=== PATIENT | female | born 1945 | race African-American/Black ===

== ENCOUNTER 2018-07-30 12:35 | Inpatient (IN) | payer MEDICARE, MEDICAID ==
[~2018-07-30] VITALS: Ht 162.6 cm; Wt 56.3 kg
[2018-07-30] MEDS ORDERED: METF-414 PO (12:52)
[2018-07-30 13:48] LABS: BG BASE EXCESS -4.1 mmol/L (-2.0-2.0); BG CARBOXYHEMOGLOBIN 0.8 % (0.5-1.5); BG DEOXYHEMOGLOBIN 5.4 % (0.0-5.0); BG FRACTION INSPIRED OXYGEN 21; BG HCO3 ACT 20.6 mmol/L (22.0-26.0); BG METHEMOGLOBIN 0.3 % (0.0-1.5); BG OXYGEN SATURATION 94.5 % (92.0-98.5); BG OXYHEMOGLOBIN 93.5 % (94.0-97.0); BG PCO2 36.3 mmHg (35.0-45.0); BG PH 7.372 (7.350-7.450); BG PO2 72.9 mmHg (75.0-100.0); BG SAMPLE SITE RIGHT BRACHIAL; BG VENT MODE ROOM AIR
[2018-07-30 14:45] LABS: BASOPHILS % 0.4 % (0.0-2.0); EOSINOPHILS % 0.9 % (0.0-5.0); HEMATOCRIT. 34.8 % (36.0-48.0); HEMOGLOBIN. 11.6 g/dL (12.0-16.0); LYMPHOCYTES % 30.5 % (20.0-50.0); MEAN CORPUSCULAR HEMOGLOBIN 29.7 pg (28.0-32.0); MEAN CORPUSCULAR VOLUME 88.7 fL (81.0-99.0); MEAN PLATELET VOLUME 8.6 fl (7.4-10.4); MONOCYTES % 7.7 % (2.0-8.0); NEUTROPHILS % 60.5 % (40.0-76.0); PLATELET 255 x1000/uL (130-400); RED BLOOD CELL COUNT 3.93 mill/uL (4.2-5.4); RED CELL DISTRIBUTION WIDTH 13.6 % (11.6-14.6)
[2018-07-30 14:54] LABS: PARTIAL THROMBOPLASTIN TIME 24.5 sec (23.4-31.0); PROTHROMBIN TIME 10.2 sec (9.1-11.1)
[2018-07-30 14:55] LABS: CHLORIDE 108 mEq/L (98-107)
[2018-07-30 15:03] LABS: CREATINE KINASE 54 IU/L (26-192); CREATINE KINASE MB FRACTION < 1.0 ng/mL (0.5-3.6)
[2018-07-30 16:58] LABS: COLOR URINE YELLOW (YELLOW); KETONES URINE NEGATIVE (NEGATIVE); LEUKOCYTE ESTERASE URINE 1+ (NEGATIVE); NITRITE URINE NEGATIVE (NEGATIVE); OCCULT BLOOD URINE NEGATIVE (NEGATIVE); PROTEIN URINE NEGATIVE (NEGATIVE); SPECIFIC GRAVITY URINE 1.011 (1.005-1.030); UROBILINOGEN URINE 0.2 E.U./dL (0.2-1.0)
[2018-07-30 16:59] LABS: CLARITY URINE SLIGHTLY HAZY (CLEAR)
[2018-07-30] MEDS ORDERED: SODIUM CHLORIDE 0.9% 1,000 ML IV ONE (17:35)
[2018-07-30] MEDS ORDERED: ONDANSETRON HCL 4MG/2ML INJ IV PRN (23:30)
[2018-07-30] MEDS: MORPHINE SULFATE 4 MG/ML CPJ (NOT FOR IM USE) IV PRN (23:41)
[2018-07-31] VITALS (7 sets, daily range): BP systolic 100–133; BP diastolic 51–68
[2018-07-31] MEDS ORDERED: DEXTROSE 50% WATER 50ML SYRINGE IV PRN (04:30)
[2018-07-31] MEDS ORDERED: ACETAMINOPHEN 325MG TABLET PO PRN (04:30)
[2018-07-31] MEDS: BLOOD SUGAR DIAGNOSTIC STRIP TEST SCH ×4 (05:49→21:47)
[2018-07-31] MEDS: INSULIN LISPRO 100 UNITS/ML SUBCUT SCH ×4 (08:00→21:52)
[2018-07-31] MEDS ORDERED: METFORMIN HCL 500MG TABLET PO SCH (08:10)
[2018-07-31] MEDS ORDERED: ASPIRIN 325MG TABLET PO SCH (09:00)
[2018-07-31] MEDS ORDERED: INFLUENZA VIRUS VACCINE(AFLURIA) 0.5ML SYR IM ONE (10:00)
[2018-07-31 15:53] LABS: AMMONIA 22 uMol/L (<32)
[2018-07-31] MEDS: INSULIN GLARGINE UD 100 UNITS/ML SYR SUBCUT SCH (21:52)
[2018-08-01 00:44] VITALS: BP 117/61
[2018-08-01 04:00] VITALS: BP 131/53
[2018-08-01] MEDS: MORPHINE SULFATE 4 MG/ML CPJ (NOT FOR IM USE) IV PRN (04:06)
[2018-08-01 06:31] LABS: BASOPHILS % 0.5 % (0.0-2.0); EOSINOPHILS % 1.9 % (0.0-5.0); HEMATOCRIT. 33.7 % (36.0-48.0); HEMOGLOBIN. 11.1 g/dL (12.0-16.0); LYMPHOCYTES % 41.1 % (20.0-50.0); MEAN CORPUSCULAR HEMOGLOBIN 29.1 pg (28.0-32.0); MEAN CORPUSCULAR VOLUME 88.7 fL (81.0-99.0); MEAN PLATELET VOLUME 8.4 fl (7.4-10.4); MONOCYTES % 9.1 % (2.0-8.0); NEUTROPHILS % 47.4 % (40.0-76.0); PLATELET 228 x1000/uL (130-400); RED CELL DISTRIBUTION WIDTH 13.7 % (11.6-14.6)
[2018-08-01] MEDS: BLOOD SUGAR DIAGNOSTIC STRIP TEST SCH ×3 (06:59→17:40)
[2018-08-01 08:00] VITALS: BP_SYST 113; BP_SYST 71; BP_SYST 99; BP_DIAS 31; BP_DIAS 45; BP_DIAS 49
[2018-08-01] MEDS: INSULIN LISPRO 100 UNITS/ML SUBCUT SCH ×3 (08:10→18:10)
[2018-08-01] MEDS: INSULIN GLARGINE UD 100 UNITS/ML SYR SUBCUT SCH (09:47)
[2018-08-01 12:00] VITALS: BP 120/59
[2018-08-01] MEDS ORDERED: FLUDROCORTISONE ACETATE 0.1MG TABLET PO SCH (12:30)
[2018-08-01 13:50] VITALS: BP 120/59
== END 2018-08-01 19:01 | disposition home health service (06) | DRG 47 ==
LOC: ER 12:35 → EDBEDREQ 14:11 → 7WST 15:06 → EDBEDREQSVC 15:13 → EDBEDREQTM 15:13 → EDBEDREQ 15:13 → ENRESERV 23:01 → EDBEDREQ 23:51
PROVIDERS: ADMIT Internal Medicine; ATTEND Internal Medicine
DX: G45.9 Transient cerebral ischemic attack, unspecified (principal); N17.9 Acute kidney failure, unspecified; I95.9 Hypotension, unspecified; E87.8 Other disorders of electrolyte and fluid balance, not elsewhere classified; E11.22 Type 2 diabetes mellitus with diabetic chronic kidney disease; E44.1 Mild protein-calorie malnutrition; N39.0 Urinary tract infection, site not specified; I12.9 Hypertensive chronic kidney disease with stage 1 through stage 4 chronic kidney disease, or unspecified chronic kidney disease; N18.9 Chronic kidney disease, unspecified; B96.89 Other specified bacterial agents as the cause of diseases classified elsewhere; R41.82 Altered mental status, unspecified; Z90.49 Acquired absence of other specified parts of digestive tract; Z79.84 Long term (current) use of oral hypoglycemic drugs; Z98.891 History of uterine scar from previous surgery; Z68.21 Body mass index [BMI] 21.0-21.9, adult
CPT/HCPCS: 36415; 36600; 70551; 71045; 80048; 80061; 82140; 82375; 82550; 82553; 82805; 82962; 83036; 83605; 83735; 83880; 84145; 84443; 84484; 86850; 86900; 87077; 87186; 93005; 93880; 96361; 96374; 96375; 97162; 99291; J1815; J2270; J2405; J7030

== ENCOUNTER 2018-08-03 08:36 | Inpatient (IN) | payer MEDICARE, MEDICAID ==
[~2018-08-03] VITALS: Ht 162.6 cm; Wt 55.8 kg
[2018-08-03 09:14] LABS: BASOPHILS % 0.7 % (0.0-2.0); EOSINOPHILS % 2.5 % (0.0-5.0); HEMATOCRIT. 36.9 % (36.0-48.0); HEMOGLOBIN. 12.3 g/dL (12.0-16.0); LYMPHOCYTES % 38.4 % (20.0-50.0); MEAN CORPUSCULAR HEMOGLOBIN 29.5 pg (28.0-32.0); MEAN CORPUSCULAR VOLUME 88.6 fL (81.0-99.0); MEAN PLATELET VOLUME 8.3 fl (7.4-10.4); MONOCYTES % 9.1 % (2.0-8.0); NEUTROPHILS % 49.3 % (40.0-76.0); PLATELET 237 x1000/uL (130-400); RED BLOOD CELL COUNT 4.17 mill/uL (4.2-5.4); RED CELL DISTRIBUTION WIDTH 13.7 % (11.6-14.6)
[2018-08-03 09:21] LABS: CHLORIDE 107 mEq/L (98-107)
[2018-08-03 09:26] LABS: ETHANOL BLOOD < 10 mg/dL
[2018-08-03 10:35] LABS: CLARITY URINE CLEAR (CLEAR); COLOR URINE YELLOW (YELLOW); KETONES URINE NEGATIVE (NEGATIVE); LEUKOCYTE ESTERASE URINE 2+ (NEGATIVE); NITRITE URINE NEGATIVE (NEGATIVE); OCCULT BLOOD URINE TRACE (NEGATIVE); PH URINE 5.5 (4.5-8.0); PROTEIN URINE TRACE (NEGATIVE); SPECIFIC GRAVITY URINE 1.012 (1.005-1.030); UROBILINOGEN URINE 0.2 E.U./dL (0.2-1.0)
[2018-08-03] MEDS ORDERED: KETOROLAC 30MG/ML VIAL IV ONE (11:30)
[2018-08-03] MEDS ORDERED: METOCLOPRAMIDE HCL 10MG/2ML VIAL IV ONE (11:30)
[2018-08-03 11:31] LABS: *AMPHETAMINES SCREEN URINE NEGATIVE (NEGATIVE); *BARBITURATES SCREEN URINE NEGATIVE (NEGATIVE); *BENZODIAZEPINES SCREEN URINE NEGATIVE (NEGATIVE); *COCAINE SCREEN URINE NEGATIVE (NEGATIVE); CANNABINOID URINE SCREEN NEGATIVE (NEGATIVE); METHADONE URINE SCREEN NEGATIVE (NEGATIVE); OPIATES URINE SCREEN NEGATIVE (NEGATIVE); PHENCYCLIDINE URINE SCREEN NEGATIVE (NEGATIVE)
[2018-08-03] MEDS ORDERED: LEVOFLOXACIN 750MG PREMIX 150 ML IV ONE (11:45)
[2018-08-03] MEDS ORDERED: LORAZEPAM 2MG/ML CPJ IV PRN (12:15)
[2018-08-03] MEDS ORDERED: CLONIDINE 0.1MG TABLET PO PRN (12:15)
[2018-08-03] MEDS ORDERED: ACETAMINOPHEN 650MG/20.3ML UDC GT PRN (12:15)
[2018-08-03] MEDS ORDERED: ONDANSETRON HCL 4MG/2ML INJ IV PRN (12:15)
[2018-08-03] MEDS ORDERED: CEFTRIAXONE 1 G PREMIX 50 ML IV SCH (13:05)
[2018-08-03 21:45] VITALS: BP 151/56
[2018-08-03 22:00] VITALS: BP 151/56
[2018-08-03] MEDS ORDERED: INSU100V3 SUBCUT (22:03)
[2018-08-03] MEDS ORDERED: METF-414 PO (22:03)
[2018-08-03] MEDS ORDERED: DEXTROSE 50% WATER 50ML SYRINGE IV PRN (22:15)
[2018-08-04] VITALS: BP 156/69
[2018-08-04 04:00] VITALS: BP 110/60
[2018-08-04] MEDS: BLOOD SUGAR DIAGNOSTIC STRIP TEST SCH ×4 (06:30→21:34)
[2018-08-04] MEDS: INSULIN LISPRO 100 UNITS/ML SUBCUT SCH ×4 (06:30→21:34)
[2018-08-04] MEDS ORDERED: LORAZEPAM 2MG/ML CPJ IV PRN (06:45)
[2018-08-04] MEDS ORDERED: ONDANSETRON HCL 4MG/2ML INJ IV PRN (06:45)
[2018-08-04 08:00] VITALS: BP 121/59
[2018-08-04] MEDS: ENOXAPARIN 40MG/0.4ML SYR SUBCUT SCH (09:55)
[2018-08-04] MEDS: DEXT 5%/0.45% NACL 1000ML 1,000 ML IV SCH (11:55)
[2018-08-04 12:00] VITALS: BP 138/71
[2018-08-04] MEDS ORDERED: CEFTRIAXONE 1 G PREMIX 50 ML IV SCH (13:00)
[2018-08-04 16:00] VITALS: BP 116/55
[2018-08-04 17:01] LABS: CHLORIDE 105 mEq/L (98-107)
[2018-08-04 20:00] VITALS: BP 139/65
[2018-08-05] VITALS: BP 130/52
[2018-08-05] MEDS: DEXT 5%/0.45% NACL 1000ML 1,000 ML IV SCH (03:58)
[2018-08-05 04:00] VITALS: BP 139/72
[2018-08-05] MEDS: BLOOD SUGAR DIAGNOSTIC STRIP TEST SCH ×2 (05:39→11:45)
[2018-08-05] MEDS: INSULIN LISPRO 100 UNITS/ML SUBCUT SCH (05:39)
[2018-08-05 06:52] LABS: BASOPHILS % 0.8 % (0.0-2.0); EOSINOPHILS % 1.9 % (0.0-5.0); HEMATOCRIT. 34.4 % (36.0-48.0); HEMOGLOBIN. 11.2 g/dL (12.0-16.0); MEAN CORPUSCULAR HEMOGLOBIN 29.2 pg (28.0-32.0); MEAN CORPUSCULAR VOLUME 89.2 fL (81.0-99.0); MEAN PLATELET VOLUME 8.5 fl (7.4-10.4); MONOCYTES % 9.8 % (2.0-8.0); NEUTROPHILS % 48.5 % (40.0-76.0); PLATELET 226 x1000/uL (130-400); RED BLOOD CELL COUNT 3.85 mill/uL (4.2-5.4); RED CELL DISTRIBUTION WIDTH 13.7 % (11.6-14.6)
[2018-08-05 08:00] VITALS: BP 99/44
[2018-08-05] MEDS: ENOXAPARIN 40MG/0.4ML SYR SUBCUT SCH (08:39)
[2018-08-05 08:54] LABS: PHOSPHORUS 3.6 mg/dL (2.5-4.9)
== END 2018-08-05 13:35 | disposition home health service (06) | DRG 463 ==
LOC: ER 09:04 → ENRESERV 20:30 → 5WST 21:38
PROVIDERS: ADMIT Internal Medicine Nephrology; ATTEND Internal Medicine Nephrology
DX: N39.0 Urinary tract infection, site not specified (principal); B96.89 Other specified bacterial agents as the cause of diseases classified elsewhere; E11.9 Type 2 diabetes mellitus without complications; G30.9 Alzheimer's disease, unspecified; E78.00 Pure hypercholesterolemia, unspecified; F02.80 Dementia in other diseases classified elsewhere, unspecified severity, without behavioral disturbance, psychotic disturbance, mood disturbance, and anxiety; I10 Essential (primary) hypertension; Z86.73 Personal history of transient ischemic attack (TIA), and cerebral infarction without residual deficits; Z90.49 Acquired absence of other specified parts of digestive tract; Z98.891 History of uterine scar from previous surgery; Z79.84 Long term (current) use of oral hypoglycemic drugs
CPT/HCPCS: 36415; 70551; 71045; 80048; 80305; 82962; 83735; 84100; 84484; 87077; 87186; 93005; 96365; 96367; 96375; 99285; G0482; J0696; J1650; J1815; J1885; J1956; J2765; J3490